=== PATIENT | male | born 1975 | race Caucasian/White ===

== ENCOUNTER 2023-02-28 14:05 | Emergency (ER) | payer MEDICAID ==
[~2023-02-28] VITALS: Ht 182.9 cm; Wt 99.8 kg
[2023-02-28] MEDS ORDERED: HYDROCODON-ACE1 EA10 PO (17:06)
[2023-02-28] MEDS ORDERED: ONDANSETRON ODT4 MG PO (17:06)
[2023-02-28 17:29] VITALS: BP 157/124
== END 2023-02-28 17:30 | disposition home or self-care (01) ==
LOC: ED 14:05
DX: N13.2 Hydronephrosis with renal and ureteral calculous obstruction (principal); I10 Essential (primary) hypertension
CPT/HCPCS: 74176; 80053; 81003; 83690; 85025; 99284-25; A9270